=== PATIENT | female | born 1955 | race Caucasian/White ===

== ENCOUNTER 2018-07-03 15:42 | Emergency (ER) | payer BC, OTHER ==
[2018-07-03] MEDS ORDERED: Aspirin 81 MG Tab.Chew PO ONE (15:53)
[2018-07-03] MEDS ORDERED: Sodium Chloride 0.9% 10 ML Syringe FLUSH PRN (15:54)
[2018-07-03] MEDS: Nitroglycerin 0.4 MG Tab.SL SL PRN ×2 (16:02→16:11)
[2018-07-03] MEDS ORDERED: Heparin Sodium 5,000 Units/ML Vial IVPUSH ONE (16:02)
[2018-07-03] MEDS ORDERED: Clopidogrel 75 MG Tab PO ONE (16:03)
[2018-07-03 16:12] VITALS: BP 114/81
[2018-07-03] MEDS ORDERED: Tenecteplase 50 MG Kit IV ONE (16:14)
[2018-07-03] MEDS ORDERED: Nitroglycerin/D5W 25 MG/250 ML BOTTLE IV SCH (16:15)
[2018-07-03] MEDS ORDERED: Heparin Sodium/0.45% NaCl 25,000 UNITS/500 ML BAG IV SCH (16:15)
[2018-07-03 16:25] LABS: ANION GAP 14.3
--- NOTE | 2018-07-03 16:32 | EDM.PDOC ---
Scribed by Torrie Mohan 07/03/18 [id number] for César Naik MD ED HPI GENERAL MEDICAL PROBLEM - General Chief Complaint: Cardiovascular Problem Stated Complaint: NOT FEELING WELL Time Seen by Provider: 07/03/18 15:50 Source of Information: Reports: Patient, RN, RN Notes Reviewed History Limitations: Reports: No Limitations - History of Present Illness INITIAL COMMENTS - FREE TEXT/NARRATIVE: Patient presents to ER with chest pain. She was shovelling snow and felt fine. She went in the house and approximately one hour later developed chest pain, shortness of breath, nausea and lightheadedness. Symptoms began approximately 1 hour ago. She did not take any aspirin, nitro or any other medications. Denies any history of cardiovascular . She has no history of chest pain. Onset: Today Duration: Constant Location: Reports: Chest Quality: Reports: Ache Severity: Severe Improves with: Reports: None Worsens with: Reports: None Associated Symptoms: Reports: No Other Symptoms Chest Pain Score (Numeric/FACES): 8 - Related Data Allergies Allergy/AdvReac Type Severity Reaction Status Date / Time tetracycline Allergy Swelling Verified 07/03/18 15:53 Home Meds: Home Meds Hydrochlorothiazide 12.5 mg PO DAILY 10/25/14 [History] Multivitamins [Tab-A-Maday] 1 tab PO DAILY 10/25/14 [History] Zolpidem [Ambien] 1 tab PO DAILY PRN 10/25/14 [History] Past Medical History Cardiovascular History: Reports: Hypertension Social & Family History - Family History Family Medical History: Noncontributory - Living Situation & Occupation Living situation: Reports: with Family ED ROS GENERAL - Review of Systems Review Of Systems: ROS reveals no pertinent complaints other than HPI. ED EXAM, GENERAL - Physical Exam Exam: See Below Exam Limited By: No Limitations General Appearance: Alert, WD/WN, No Apparent Distress Eye Exam: Bilateral Eye: Normal Inspection Ears: Normal External Exam, Hearing Grossly Normal Nose: Normal Inspection, Normal Mucosa, No Blood Throat/Mouth: Normal Inspection, Normal Lips, Normal Teeth, Normal Gums, Normal Oropharynx, Normal Voice, No Airway Compromise Head: Atraumatic, Normocephalic Neck: Normal Inspection, Supple, Non-Tender, Full Range of Motion Respiratory/Chest: No Respiratory Distress, Lungs Clear, Normal Breath Sounds, No Accessory Muscle Use, Chest Non-Tender Cardiovascular: Normal Peripheral Pulses, Regular Rate, Rhythm, No Edema, No JVD , No Murmur, No Rub, Bradycardia GI/Abdominal: Normal Bowel Sounds, Soft, Non-Tender, No Organomegaly, No Distention, No Abnormal Bruit, No Mass Back Exam: Normal Inspection Extremities: Normal Inspection, Normal Range of Motion, Non-Tender, Normal Capillary Refill, No Pedal Edema Neurological: Alert, Oriented, CN II-XII Intact, Normal Cognition, Normal Gait, No Motor/Sensory Deficits Psychiatric: Normal Mood, Flat Affect Skin Exam: Warm, Dry, Intact, Normal Color, No Rash EKG INTERPRETATION EKG Date: 07/03/18 Time: 15:56 Rhythm: Other (sinus bradycardia) Rate (Beats/Min): 51 P-Wave: Present QRS: Normal ST-T: Elevated (inferior with recip. changes in anterior leads) QT: Normal Comparison: NA - No Prior EKG EKG Interpretation Comments: STEMI Course - Vital Signs Last Recorded V/S: Last Vital Signs Temp 35.9 C 07/03/18 15:54 Pulse 48 L 07/03/18 15:54 Resp 18 07/03/18 15:54 BP 114/81 07/03/18 16:11 Pulse Ox 100 07/03/18 15:54 - Orders/Labs/Meds Orders: Active Orders 24 hr Category Date Time Status EKG 12 Lead [EKG Documentation Completion] [RC] STAT Care 07/03/18 15:55 Active Peripheral IV Care [RC] . DIRECTED Care 07/03/18 15:55 Active Chest 1V Frontal [CR] Stat Exams 07/03/18 15:55 Taken COMPREHENSIVE METABOLIC PN,CMP [CHEM] Stat Lab 07/03/18 15:56 Received D Dimer [D-DIMER QUANTITATIVE] [COAG] Stat Lab 07/03/18 15:56 Received LIPASE [CHEM] Stat Lab 07/03/18 15:56 Received PTT,PARTIAL THROMBOPLSTIN TIME [COAG] Stat Lab 07/03/18 15:56 Received TROPONIN I [CHEM] Stat Lab 07/03/18 15:56 Received Heparin Sodium/0.45% NaCl [Heparin 25,000 Units in 1/2 Med 07/03/18 16:15 Active NS 500 ML] 25,000 units in 500 ml IV TITRATE Nitroglycerin [Nitrostat] Med 07/03/18 15:53 Active 0.4 mg SL Q5M PRN Nitroglycerin/D5W [Nitroglycerin 25 MG/D5W 250 ML] Med 07/03/18 16:15 Active 25 mg in 250 ml IV TITRATE Sodium Chloride 0.9% [Saline Flush] Med 07/03/18 15:54 Active 10 ml FLUSH ASDIRECTED PRN Peripheral IV Insertion Adult [OM.PC] Stat Oth 07/03/18 15:55 Ordered Medication Orders Heparin Sodium/Sodium Chloride (Heparin 25,000 Units In 1/2 Ns 500 Ml) 25,000 units in 500 mls @ 17.418 mls/hr IV TITRATE JACQUES; Protocol Last Admin: 07/03/18 16:18 Dose: 12 units/kg/hr, 17.418 mls/hr Nitroglycerin/Dextrose (Nitroglycerin 25 Mg/D5w 250 Ml) 25 mg in 250 mls @ 6 mls/hr IV TITRATE JACQUES; Protocol Nitroglycerin (Nitrostat) 0.4 mg SL Q5M PRN PRN Reason: Chest Pain Last Admin: 07/03/18 16:11 Dose: 0.4 mg Admin: 07/03/18 16:02 Dose: 0.4 mg Sodium Chloride (Saline Flush) 10 ml FLUSH ASDIRECTED PRN PRN Reason: Keep Vein Open Last Admin: 07/03/18 16:03 Dose: 10 ml Labs: Laboratory Tests 07/03/18 Range/Units 15:56 WBC 9.2 (5.0-10.0) 10^3/uL RBC 4.47 (4.2-5.4) 10^6/uL Hgb 13.5 (12.0-16.0) g/dL Hct 40.8 (37.0-47.0) % MCV 91.3 (80-100) fL MCH 30.2 (27.0-34.0) pg MCHC 33.1 (33.0-35.0) g/dL Plt Count 332 (150-450) 10^3/uL Neut % (Auto) 53.6 (42.2-75.2) % Lymph % (Auto) 37.1 (20.5-50.1) % [place] % (Auto) 7.4 (2-8) % Eos % (Auto) 1.6 (1.0-3.0) % Baso % (Auto) 0.3 (0.0-1.0) % Meds: Medications Generic Name Dose Route Start Last Admin Trade Name Freq PRN Reason Stop Dose Admin Heparin Sodium/Sodium Chloride 25,000 units in 500 mls @ 17.418 mls/hr 16:15 07/03/18 16:18 Heparin 25,000 Units In 1/2 Ns 500 Ml IV 12 units/kg/hr TITRATE JACQUES 17.418 mls/hr Administration Protocol 12 UNITS/KG/HR Nitroglycerin/Dextrose 25 mg in 250 mls @ 6 mls/hr 07/03/18 16:15 Nitroglycerin 25 Mg/D5w 250 Ml IV TITRATE JACQUES Protocol 10 MCG/MIN Nitroglycerin 0.4 mg 07/03/18 15:53 07/03/18 16:11 Nitrostat SL 0.4 mg Q5M PRN Administration Chest Pain Sodium Chloride 10 ml 07/03/18 15:54 07/03/18 16:03 Saline Flush FLUSH 10 ml ASDIRECTED PRN Administration Keep Vein Open Discontinued Medications Generic Name Dose Route Start Last Admin Trade Name Freq PRN Reason Stop Dose Admin Aspirin 324 mg 07/03/18 15:53 07/03/18 16:02 Aspirin PO 07/03/18 15:54 324 mg ONETIME ONE Administration Clopidogrel Bisulfate 300 mg 07/03/18 16:03 07/03/18 16:13 Plavix PO 07/03/18 16:04 300 mg ONETIME ONE Administration Heparin Sodium (Porcine) 4,000 units 07/03/18 16:02 07/03/18 16:13 Heparin Sodium IVPUSH 07/03/18 16:03 4,000 units ONETIME ONE Administration Tenecteplase 40 mg 07/03/18 16:14 Tnkase IV 07/03/18 16:15 ONETIME ONE Protocol - Radiology Interpretation Free Text/Narrative:: CXR: no acute process, see Rad. report. - Re-Assessments/Exams Free Text/Narrative Re-Assessment/Exam: 07/03/18 16:[address] Taylor via [facility] for STEMI, he concurs with tx thus far and advises TNKase due to time/distance (airlift via rotor not available due to weather, and fixed wing not available for over 95 minutes). [facility] is currently here to transport a less critical patient, and I will have them transfer the STEMI by ground as it will be the fastest available method. Pt has no contraindications to thrombolytic tx, verbal explanation and consent is obtained by me, including risk/benefits of TNKase. Pt accepts and wishes to received TNKase. Departure - Departure Time of Disposition: 16:20 Disposition: DC/Tfer to Acute Hospital 02 Reason for Transfer *Q: Primary PCI Indicated Condition: Critical Clinical Impression: ST elevation myocardial infarction (STEMI) of inferior wall Referrals: Genna Bazzi MD [Primary Care Provider] - Forms: ED Department Discharge, Interfacility Transfer EMTALA - My Orders Last 24 Hours: My Active Orders 07/03/18 15:53 Nitroglycerin [Nitrostat] 0.4 mg SL Q5M PRN 07/03/18 15:54 Sodium Chloride 0.9% [Saline Flush] 10 ml FLUSH ASDIRECTED PRN 07/03/18 15:55 EKG 12 Lead [EKG Documentation Completion] [RC] STAT Peripheral IV Care [RC] . DIRECTED Chest 1V Frontal [CR] Stat Peripheral IV Insertion Adult [OM.PC] Stat 07/03/18 15:56 COMPREHENSIVE METABOLIC PN,CMP [CHEM] Stat D Dimer [D-DIMER QUANTITATIVE] [COAG] Stat LIPASE [CHEM] Stat PTT,PARTIAL THROMBOPLSTIN TIME [COAG] Stat TROPONIN I [CHEM] Stat 07/03/18 16:15 Heparin Sodium/0.45% NaCl [Heparin 25,000 Units in 1/2 NS 500 ML] 25,000 units in 500 ml IV TITRATE Nitroglycerin/D5W [Nitroglycerin 25 MG/D5W 250 ML] 25 mg in 250 ml IV TITRATE - Assessment/Plan Last 24 Hours: My Active Orders 07/03/18 15:53 Nitroglycerin [Nitrostat] 0.4 mg SL Q5M PRN 07/03/18 15:54 Sodium Chloride 0.9% [Saline Flush] 10 ml FLUSH ASDIRECTED PRN 07/03/18 15:55 EKG 12 Lead [EKG Documentation Completion] [RC] STAT Peripheral IV Care [RC] . DIRECTED Chest 1V Frontal [CR] Stat Peripheral IV Insertion Adult [OM.PC] Stat 07/03/18 15:56 COMPREHENSIVE METABOLIC PN,CMP [CHEM] Stat D Dimer [D-DIMER QUANTITATIVE] [COAG] Stat LIPASE [CHEM] Stat PTT,PARTIAL THROMBOPLSTIN TIME [COAG] Stat TROPONIN I [CHEM] Stat 07/03/18 16:15 Heparin Sodium/0.45% NaCl [Heparin 25,000 Units in 1/2 NS 500 ML] 25,000 units in 500 ml IV TITRATE Nitroglycerin/D5W [Nitroglycerin 25 MG/D5W 250 ML] 25 mg in 250 ml IV TITRATE I have read and agree with the documentation that has been completed regarding this visit. By signing this record, I attest that the documentation was completed in my physical presence and is an accurate record of the encounter.
== END 2018-07-03 16:44 ==
LOC: DL.ED 15:42
DX: I21.19 ST elevation (STEMI) myocardial infarction involving other coronary artery of inferior wall (principal); I10 Essential (primary) hypertension; Z88.1 Allergy status to other antibiotic agents; Z79.899 Other long term (current) drug therapy
CPT/HCPCS: 36415; 71045; 80053; 83690; 84484; 85025; 85379; 85730; 93005; 96365; 96374; 96375; 96376; 99285; A9270-GY; J1644; J3101; J3490

== ENCOUNTER 2025-04-02 06:52 | Day surgery (SDC) | payer MEDICARE, OTHER ==
[2025-04-02] MEDS ORDERED: Propofol 200 MG/20 ML SDV IV ONE (06:53)
[2025-04-02] MEDS: Lactated Ringers 1,000 ML IV SCH (08:00)
[2025-04-02 09:43] VITALS: BP 136/68; PULSE 55
[2025-04-02] MEDS ORDERED: Propofol 200 MG/20 ML SDV ONE (10:01)
== END 2025-04-02 10:09 | disposition home or self-care (01) ==
LOC: DL.ENDO 06:52
PROVIDERS: ATTEND Internal Medicine Gastroenterology
DX: Z12.11 Encounter for screening for malignant neoplasm of colon (principal); K57.30 Diverticulosis of large intestine without perforation or abscess without bleeding; I10 Essential (primary) hypertension; I25.10 Atherosclerotic heart disease of native coronary artery without angina pectoris; F41.1 Generalized anxiety disorder; E78.00 Pure hypercholesterolemia, unspecified; K21.9 Gastro-esophageal reflux disease without esophagitis; Z79.899 Other long term (current) drug therapy
CPT/HCPCS: G0121; J2704; J7120